=== PATIENT | male | born 1975 | race Caucasian/White ===

== ENCOUNTER 2022-03-18 19:31 | Emergency (ER) | payer OTHER, SELFPAY ==
--- NOTE | 2022-03-18 19:32 | ED.SKABFB ---
HPI - Skin/Abscess/Foreign Bdy General Chief complaint: Skin/Abscess/Foreign Body Stated complaint: rash back and face Time Seen by Provider: 03/18/22 19:32 Source: patient and RN notes reviewed History of Present Illness HPI narrative: Patient is a 46-year-old male who presents the urgent care with complaints of a diffuse itchy raised rash. Patient states that 1 week ago he was out in the yard spraying [place] and believes that that is what started the rash. Patient states that he was out in the sun today which made it much worse. Patient has taking Benadryl without much relief. No other acute complaints. No acute distress noted. Patient aware of the plan of care. Some parts of this dictation were generated by voice recognition software and may contain typographical and/or grammatical inaccuracies. Related Data Allergies Allergy/AdvReac Type Severity Reaction Status Date / Time No Known Allergies Allergy Verified 03/18/22 19:43 Review of Systems Review of Systems: CONSTITUTIONAL: Denies fever, chills, or sweats. EYES: Denies visual changes, redness, or discharge. ENT: Denies rhinorrhea, congestion, sore throat, or otalgia. CARDIOVASCULAR: Denies chest pain, palpitations, or edema. RESPIRATORY: Denies cough or dyspnea. GASTROINTESTINAL: Denies abdominal pain, nausea, vomiting, or diarrhea. GENITOURINARY: Denies dysuria or hematuria. SKIN: Reports of an itchy diffuse rash MUSCULOSKELETAL: Denies back pain, joint pain, or myalgia. NEUROLOGIC: Denies headache, numbness, or weakness. All other systems reviewed are negative, except as documented in HPI. PMFSH Social History Social History Smoking status: Never smoker Second hand tobacco smoke exposure: No Alcohol intake: never Comments At the time of my signature, I reviewed and agree with the nursing past medical, surgical, social, and family history. There is no relevant family history pertinent to the patient complaint. Exam Narrative: GENERAL: This is a well-nourished, well-developed patient, in no apparent distress. HEAD: normocephalic, atraumatic. EYES: PERRL. Sclera clear/white. Vision is grossly intact. EARS: External ears normal NOSE: External nose normal with no obvious nasal discharge, nares without redness, no rhinorrhea. THROAT: Mucous membranes moist NECK: Neck supple SKIN: Diffuse rhus dermatitis raised, erythemic and pruritic throughout the trunk, neck, bilateral upper arms, bilateral lower extremities, and face NEURO: awake, alert, and oriented to person, place and time. There were no obvious focal neurologic abnormalities. EXTREMITIES: No clubbing, cyanosis, or edema. Course Course Level of Care: Express Care Visit Vital Signs Vital signs: Vital Signs Temperature 99.4 F 03/18/22 19:37 Pulse Rate 89 03/18/22 19:37 Respiratory Rate 20 03/18/22 19:37 Blood Pressure 142/81 H 03/18/22 19:37 Pulse Oximetry 97 03/18/22 19:37 Oxygen Delivery Room Air 03/18/22 19:37 Temperature 99.4 F 03/18/22 19:37 Pulse Rate 89 03/18/22 19:37 Respiratory Rate 20 03/18/22 19:37 Blood Pressure 142/81 H 03/18/22 19:37 Pulse Oximetry 97 03/18/22 19:37 Oxygen Delivery Room Air 03/18/22 19:37 Reviewed-patient is informed that they may have pre-hypertension or hypertension based on a blood pressure reading in the department. I recommend the patient call the primary care provider listed on their discharge instructions or a physician of their choice this week to arrange follow-up for further evaluation of possible pre-hypertension or hypertension. MDM - Skin/Abscess/Foreign Bdy MDM Narrative Medical decision making narrative: Advised patient complete the steroid regimen as prescribed. Take the 5-day regimen of 50 mg/day and then complete the taper thereafter. Would recommend starting the steroid in the morning to avoid keeping you up tonight. Use the prescription cream to the affected areas avoiding near the eyes, groin and u
[2022-03-18 19:37] VITALS: BP 142/81; PULSE 89; RESP 20; TEMP 37.4; O2SAT 97
== END 2022-03-18 19:57 | disposition home or self-care (01) ==
PROVIDERS: Emergency Provider Nurse Practitioner Family
DX: L23.7 Allergic contact dermatitis due to plants, except food (principal)
CPT/HCPCS: 99203; G0463

== ENCOUNTER 2022-04-12 17:39 | Emergency (ER) | payer OTHER, SELFPAY ==
--- NOTE | 2022-04-12 17:40 | ED.SKABFB ---
HPI - Skin/Abscess/Foreign Bdy General Chief complaint: Skin/Abscess/Foreign Body Stated complaint: Rash Time Seen by Provider: 04/12/22 17:40 Source: patient Mode of arrival: ambulatory Limitations: no limitations History of Present Illness HPI narrative: Mr. Grant is a 46-year-old male patient presenting to the clinic today with complaints of a rash. He reports that he had this rash a couple weeks ago and was seen in the [facility] and was given a prescription for prednisone taper dose and triamcinolone. Reports that this is helped however since he has stopped the medication the rash is coming back. He reports a rash to the left lateral side abdomen, his arms, and legs.. He reports the rash is itchy in nature. It is raised and scaly. Denies any weeping of the rash. Denies any new environmental changes, soaps, detergents, foods, or medications. Related Data Allergies Allergy/AdvReac Type Severity Reaction Status Date / Time No Known Allergies Allergy Verified 04/12/22 17:52 Review of Systems Review of Systems: Pertinent positives per HPI. Patient denies any fever, chills,headache, visual changes, dizziness, cough, runny nose, sore throat, shortness of breath, chest pain, palpitations, nausea, vomiting, diarrhea, constipation, abdominal pain, or any urinary issues. PMFSH Social History Social History Smoking status: Never smoker Second hand tobacco smoke exposure: No Alcohol intake: never Comments At the time of my signature, I reviewed and agree with the nursing past medical, surgical, social, and family history. There is no relevant family history pertinent to the patient complaint. Exam Narrative: General: Well-developed, well nourished, in no apparent distress Head: Normocephalic, atraumatic. Cardio: Regular rate and rhythm, s1 and s2 normal, no murmur appreciated. Resp: Clear to auscultation bilaterally, no rhonchi, rales, wheezing or rubs. Integumentary: [place], warm, and dry, intact without lesion, red raised scaly itchy rash to the left lateral side, back, arms, legs, and torso. Course Course Emergency Course: Portions of this record may have been created with voice recognition software. Level of Care: Express Care Visit Vital Signs Vital signs: Vital Signs Temperature 36.7 C 04/12/22 17:47 Pulse Rate 84 04/12/22 17:47 Respiratory Rate 16 04/12/22 17:47 Blood Pressure 153/88 H 04/12/22 17:47 Pulse Oximetry 98 04/12/22 17:47 Oxygen Delivery Room Air 04/12/22 17:47 Temperature 36.7 C 04/12/22 17:47 Pulse Rate 84 04/12/22 17:47 Respiratory Rate 16 04/12/22 17:47 Blood Pressure 153/88 H 04/12/22 17:47 Pulse Oximetry 98 04/12/22 17:47 Oxygen Delivery Room Air 04/12/22 17:47 Vital signs reviewed MDM - Skin/Abscess/Foreign Bdy MDM Narrative Medical decision making narrative: At the time of assessment patient is resting comfortably on the exam table. Skin rash appears to be a dermatitis. I will treat with a course of prednisone taper and triamcinolone cream and refer him to a switch adjuster. Patient voiced understanding of discharge instructions and agrees to treatment plan other supportive measures were discussed with the patient he voiced understanding. Differential Diagnosis Differential diagnosis: Likely eczema, insect bites and contact dermatitis Discharge Plan Discharge Clinical Impression: Dermatitis Patient Disposition: Home, Self-Care Condition: Stable Instructions: Dermatitis (ED) Additional Instructions: Triamcinolone cream as prescribed Prednisone taper dose as prescribed May try taking Pepcid 20 mg daily to see if this helps as this reduces histamine Take daily claritan/zrytec as antihistamine. Avoid scratching Avoid hot showers Moisturize skin daily with lubriderm, cetaphil, or aquafore lotion. May taken Benadryl 25-50mg every 6 hours as needed
[2022-04-12 17:47] VITALS: BP 153/88; PULSE 84; RESP 16; TEMP 36.7; O2SAT 98
== END 2022-04-12 18:11 | disposition home or self-care (01) ==
PROVIDERS: Emergency Provider Nurse Practitioner Family
DX: L30.9 Dermatitis, unspecified (principal)
CPT/HCPCS: 99213; G0463